=== PATIENT | female | born 1975 | race Caucasian/White ===

== ENCOUNTER 2016-08-14 10:29 | Day surgery (SDC) | payer OTHER ==
[2016-08-11 16:41] VITALS: BMI 31.3
[2016-08-14] VITALS (15 sets, daily range): BP systolic 100–140; BP diastolic 57–80; PULSE 66–107; RESP 13–24; Ht 152.4 cm; Wt 79.0 kg
[~2016-08-14] VITALS: Ht 152.4 cm; Wt 79.0 kg
[~2016-08-14 10:29] MED LIST: CEFAZOLIN 1 GM INJ ONE; CEFAZOLIN 2 GM/50 ML (PMX) 50 ML IVPB SCH; SOD CHLORIDE 0.9% 1,000 ML IV SCH
[2016-08-14 13:19] LABS: ADD SCAN DIFF NO
[2016-08-14 13:20] LABS: BASOPHILS % 0.4 % (0.0-2.0); EOSINOPHILS % 0.4 % (0.0-7.0); HEMATOCRIT 39.7 % (37.0-47.0); HEMOGLOBIN 12.9 g/dl (12.0-16.0); LYMPHOCYTES # 1.3 10^3/ul (0.8-2.9); LYMPHOCYTES % 15.5 % (15.0-51.0); MEAN CORPUSCULAR HGB CONC 32.5 g/dl (32.0-37.0); MEAN CORPUSCULAR VOLUME 83.1 fl (82.0-101.0); MEAN PLATELET VOLUME 9.7 fl (7.4-10.4); MONOCYTE # 0.5 10^3/ul (0.3-0.9); MONOCYTES % 5.7 % (0.0-11.0); NEUTROPHIL # 6.4 10^3/ul (1.6-7.5); NEUTROPHILS % 77.5 % (39.0-77.0); PLATELET COUNT 331 10^3/UL (140-415); RED BLOOD COUNT 4.78 10^6/ul (4.20-5.40); RED CELL DISTRIBUTION WIDTH 13.4 % (11.5-14.5); WHITE BLOOD COUNT 8.2 10^3/ul (4.8-10.8)
[2016-08-14 13:22] LABS: POTASSIUM 3.6 mmol/L (3.5-5.1)
[2016-08-14 13:24] LABS: INR 0.96; PROTIME 12.8 Sec (12.2-14.2)
[2016-08-14 13:25] LABS: PARTIAL THROMBOPLASTIN TIME 29.1 Sec (25.0-35.0)
[2016-08-14 13:31] LABS: CALCIUM 9.1 mg/dl (8.4-10.2); CREATININE 0.42 mg/dl (0.44-1.00)
[2016-08-14] MEDS ORDERED: BUPIVACAINE 0.25% (MPF) 10 ML 10 ML VIAL ONE ×2 (13:59→14:51)
[2016-08-14] MEDS ORDERED: LABETALOL HCL 20MG INJ IV PRN (14:00)
[2016-08-14] MEDS ORDERED: FENTAnyl 50 MCG/ML VIAL IV PRN ×2 (14:00)
[2016-08-14] MEDS ORDERED: MEPERIDINE 25 MG INJ IV PRN (14:00)
[2016-08-14] MEDS ORDERED: MIDAZOLAM 1 MG/ML 2 ML INJ IV PRN (14:00)
[2016-08-14] MEDS ORDERED: DIPHENHYDRAMINE 50 MG INJ IV PRN (14:00)
[2016-08-14] MEDS ORDERED: HYDROmorphONE (0.2 MG/ML) 10ML SYG IV PRN ×2 (14:00)
[2016-08-14] MEDS ORDERED: morphine (1 MG/ML) 10ML SYRINGE IV PRN ×2 (14:00)
[2016-08-14] MEDS ORDERED: EPHEDrine SULFATE 50 MG/5 ML SYG IV PRN (14:00)
[2016-08-14] MEDS ORDERED: ONDANSETRON 4 MG INJ IV PRN (14:00)
[2016-08-14] MEDS ORDERED: METOCLOPRAMIDE 10 MG INJ IV PRN (14:00)
[2016-08-14] MEDS ORDERED: hydrALAzine 20 MG INJ IV PRN (14:00)
[2016-08-14] MEDS ORDERED: SUCCINYLCHOLINE CHLORIDE 100 MG/5 ML SYG IV ONE (14:04)
[2016-08-14] MEDS ORDERED: LIDOCAINE 2% (SDV) 5 ML INJ ONE (14:04)
[2016-08-14] MEDS ORDERED: MEPERIDINE 100 MG INJ ONE (14:04)
[2016-08-14] MEDS ORDERED: PROPOFOL 20 ML ONE (14:04)
[2016-08-14] MEDS ORDERED: ROCURONIUM 50 MG INJ ONE (14:04)
[2016-08-14] MEDS ORDERED: GLYCOPYRROLATE 0.4 MG INJ ONE ×2 (14:04→14:24)
[2016-08-14] MEDS ORDERED: NEOSTIGMINE 3 MG/3 ML SYRINGE ONE (14:24)
[2016-08-14] MEDS ORDERED: METOCLOPRAMIDE 10 MG INJ ONE (14:37)
[2016-08-14] MEDS ORDERED: ONDANSETRON 4 MG INJ ONE (14:37)
[2016-08-14] MEDS ORDERED: HYDROCODONE/APAP (5/325) TAB PO ONE (15:00)
--- NOTE | 2016-08-14 16:30 | OPR ---
DATE OF OPERATION: 08/14/2016 INDICATION: This is a 41-year-old female with symptomatic gallstones. Risks, alternatives, benefits, and personnel were discussed with the patient. Patient expresses understanding and consents to the operation. PREOPERATIVE DIAGNOSIS: Symptomatic gallstones. PREOPERATIVE DIAGNOSIS: Symptomatic gallstones. OPERATION: Laparoscopic cholecystectomy. SURGEON: Jaye Valladares MD. SHANK STAPLER: Sampson Schulz SPECIMEN: Gallbladder. COMPLICATIONS: None. ANESTHESIA: General. PROCEDURE: The patient was taken to the OR and prepped and draped in the usual sterile fashion. Surgical timeout was performed. IV antibiotics were given. Infraumbilical incision was made transversely with a 15 blade. Dissection cautery was carried down to the fascia which was divided with curved Watt scissors. An 0 Vicryl U-stitch was placed into the fascia. Balloon Cammy trocar is introduced. Pneumoperitoneum is established. Midepigastric 12 mm optical trocar and right upper quadrant, right upper flank 5 mm optical trocars were placed under direct visualization. Upon initial inspection, there were some adhesions to the gallbladder which were taken down bluntly. The cystic duct was identified. The critical view was established. The cystic duct was divided using a [address] vascular stapler. The cystic artery is divided using clips and scissors. Gallbladder was taken off the gallbladder bed. There was good hemostasis. Additional Surgicel was placed for hemostatic support. Gallbladder was retrieved using EndoCatch bag. Ports were removed under direct visualization. 0 Vicryl U-stitch was tied down. Skin was closed using skin mich. Local anesthesia was injected. Dry dressings were applied. Dictated By: JAYE VALLADARES MD SB/SONU Conf#: [id number] DID#: [id number] MTDD
[2016-08-15] MEDS ORDERED: POLY17PO6 PO (17:35)
== END 2016-08-14 17:20 | disposition home or self-care (01) ==
LOC: SDS 10:29
PROVIDERS: ATTEND Surgery
DX: K81.1 Chronic cholecystitis (principal); I10 Essential (primary) hypertension; E66.9 Obesity, unspecified; Z68.34 Body mass index [BMI] 34.0-34.9, adult
CPT/HCPCS: 47562; 80048; 85025; 85610; 85730; 88304; J0330; J0690; J1170; J2175; J2270; J2405; J2710; J2765; J3010; Z7512; Z7610

== ENCOUNTER 2016-08-15 14:49 | Emergency (ER) | payer OTHER ==
[~2016-08-15] VITALS: Ht 157.5 cm; Wt 73.0 kg
[2016-08-15 14:56] VITALS: Ht 157.5 cm; Wt 73.0 kg
--- NOTE | 2016-08-15 15:18 | ERA ---
ER Documentation Chief Complaint Date/Time DATE: 08/15/16 TIME: 15:18 Chief Complaint HAD LAP SAGAR YETERDAY ,HERE FOR AP,FEVER, VOMITING HPI The patient is a 41-year-old female, presenting to the ER because of subjective fever, vomiting, constipation after having had laparoscopic cholecystectomy yesterday by Dr. Valladares. She denies headache, neck pain, chest pain, dyspnea, vomiting, dysuria. She does not smoke, drink Past medical history:none Past surgical history: Cholecystectomy ROS All systems reviewed and are negative except as per history of present illness. Medications Home Meds Active Scripts Polyethylene Glycol* (Miralax*) 17 Gm Powd.pack, 17 GM PO DAILY, #7 Prov:DERIC LOWE MD 08/15/16 Reported Medications [None] No Conflict Check 04/17/12 Allergies Allergies: Coded Allergies: No Known Allergy (Unverified , 08/15/16) PMhx/Soc History of Surgery: Yes (lap sagar) Anesthesia Reaction: No Hx Neurological Disorder: No Hx Respiratory Disorders: No Hx Cardiac Disorders: No Hx Psychiatric Problems: No Hx Miscellaneous Medical Probl: No Hx Alcohol Use: No Hx Substance Use: No Hx Tobacco Use: No Physical Exam Vitals Vital Signs Date Time Temp Pulse Resp B/P Pulse Ox O2 Delivery O2 Flow Rate FiO2 08/15/16 14:56 99.6 99 20 130/91 97 Physical Exam Const: No acute distress. Head: Atraumatic. Eyes: Normal Conjunctiva. ENT: Normal External Ears, Nose and Mouth. Neck: Full range of motion. No meningismus. Resp: Clear to auscultation bilaterally. Cardio: Regular rate and rhythm, no murmurs. Abd: Soft, non distended, normal bowel sounds, puncture wound healing well, mild diffuse and vague abdominal tenderness, no rigidity, rebound, CVA tenderness Skin: No petechiae or rashes. Back: No midline or flank tenderness. Ext: No cyanosis, or edema. Neur: Awake and alert. No focal deficit Psych: Normal Mood and Affect. Result Diagram: 08/15/16 1630 08/15/16 1630 Results 24 hrs Laboratory Tests Test 08/15/16 16:28 08/15/16 16:30 Bedside Urine pH (LAB) 7.0 Bedside Urine Protein (LAB) 1+ Bedside Urine Glucose (UA) Negative Bedside Urine Ketones (LAB) 1+ Bedside Urine Blood 1+ Bedside Urine Nitrite (LAB) Negative Bedside Urine Leukocyte Esterase (L Negative White Blood Count 16.110^3/ul Red Blood Count 4.4210^6/ul Hemoglobin 12.2g/dl Hematocrit 36.8% Mean Corpuscular Volume 83.3fl Mean Corpuscular Hemoglobin 27.6pg Mean Corpuscular Hemoglobin Concent 33.2g/dl Red Cell Distribution Width 13.8% Platelet Count 82138^3/UL Mean Platelet Volume 9.5fl Neutrophils % 88.7% Lymphocytes % 5.3% Monocytes % 5.3% Eosinophils % 0.0% Basophils % 0.1% Nucleated Red Blood Cells % 0.0/100WBC Neutrophils # 14.310^3/ul Lymphocytes # 0.910^3/ul Monocytes # 0.910^3/ul Eosinophils # 0.010^3/ul Basophils # 0.010^3/ul Nucleated Red Blood Cells # 0.010^3/ul Sodium Level 139mmol/L Potassium Level 3.6mmol/L Chloride Level 101mmol/L Carbon Dioxide Level 24mmol/L Anion Gap 18 Blood Urea Nitrogen 8mg/dl Creatinine 0.46mg/dl Glucose Level 158mg/dl Calcium Level 9.1mg/dl Total Bilirubin 0.9mg/dl Direct Bilirubin 0.00mg/dl Indirect Bilirubin 0.9mg/dl Aspartate Amino Transf (AST/SGOT) 158IU/L Alanine Aminotransferase (ALT/SGPT) 197IU/L Alkaline Phosphatase 121IU/L Total Protein 8.4g/dl Albumin 4.4g/dl Globulin 4.00g/dl Albumin/Globulin Ratio 1.10 Lipase 51U/L Current Medications Medications (Trade) Dose Ordered Sig/Tono Route PRN Reason Start Time Stop Time Status Last Admin Dose Admin Sodium Chloride (NS) 1,000 ml @ 1,000 mls/hr Q1H ONCE IV 08/15/16 16:00 08/15/16 16:59 DC 08/15/16 16:19 Morphine Sulfate (morphine) 4 mg ONCE STAT IV 08/15/16 15:31 08/15/16 15:33 DC 08/15/16 16:20 Ondansetron HCl (Zofran Inj) 4 mg ONCE STAT IV 08/15/16 15:31 08/15/16 15:33 DC 08/15/16 16:19 Ketorolac Tromethamine (Toradol) 30 mg ONCE STAT IV 08/15/16 17:34 08/15/16 17:35 DC 08/15/16 17:40 IV Flush 10 ml 10 ml STK-MED ONCE .ROUTE 08/15/16 17:55 08/15/16 17:56 DC 08/15/16 18:24 Sodium Chloride (NS) 100 ml @ ud STK-MED ONCE .ROUTE 08/15/16 17:56 08/15/16 17:57 DC 08/15/16 18:24 Iohexol (Omnipaque 300mg/ ml) 150 ml STK-MED ONCE .ROUTE 08/15/16 17:56 08/15/16 17:57 DC 08/15/16 18:23 Procedures/[place] [id number] Radiology Main Line: [phone] DIAGNOSTIC IMAGING REPORT Patient: ROLF ROSE : 1975 Age: 41 Sex: F MR #: [id number] DOS: 08/15/16 1531 Ordering MD: DERIC LOWE MD Location: [facility] Room/Bed: PROCEDURE: XR Chest. CLINICAL INDICATION: Abdominal pain. TECHNIQUE: Single frontal chest x-ray. COMPARISON: 04/18/2012 FINDINGS: Minimal left lower lobe subsegmental atelectasis is present. Otherwise, the lungs are clear. No focal opacification is seen. No pneumothorax or pleural effusion is seen. Aortic arch atherosclerotic calcifications are present. Otherwise, the cardiomediastinal silhouette is unremarkable. The osseous structures are grossly unremarkable. IMPRESSION: 1. Left lower lobe linear density likely representing subsegmental atelectasis. Otherwise, unremarkable exam. 2. Aortic atherosclerosis. RPTAT: JJ .Angel Whitney MD, Date Time Electronically viewed and signed by .Angel Whitney MD, on 08/15/2016 16:29 .A/ CC: DERIC LOWE MD [place] [id number] Radiology Main Line: [phone] DIAGNOSTIC IMAGING REPORT Patient: ROLF ORSE : 1975 Age: 41 Sex: F MR #: [id number] DOS: 08/15/16 1747 Ordering MD: DERIC LOWE MD Location: [facility] Room/Bed: PROCEDURE: CT Abdomen and Pelvis with contrast. CLINICAL INDICATION: Abdominal pain, recent laparoscopic cholecystectomy TECHNIQUE: CT of the abdomen and pelvis was performed on a multi-detector scanner following the uncomplicated IV administration of 100 cc of Omnipaque 300. Coronal and sagittal images were reformatted from the axial data set. One or more of the following dose reduction techniques were used: automated exposure control, adjustment of the mA and/or kV according to patient size, use of iterative reconstruction technique. CTDI = 14.44 mGy. DLP = 869.75 mGy- cm. COMPARISON: None. FINDINGS: CT abdomen: Bibasilar atelectasis is noted. The heart size is normal, without pericardial effusion. The liver is fatty infiltrated, without evidence of focal mass. Gallbladder is surgically absent. Mild amount of fluid is present in the gallbladder fossa, likely normal postoperative change. Biliary tree, pancreas, spleen, adrenal glands and kidneys are unremarkable. No urolithiasis or obstructive uropathy is identified. The stomach is grossly unremarkable. There is no abdominal aortic aneurysm or dissection. There is no retroperitoneal lymphadenopathy. The blanca hepatis region is clear. CT pelvis: Trace amount of free intraperitoneal air is seen, consistent with residual postoperative air. No bowel obstruction, abscess, or evidence of bowel perforation is seen. There is no diverticulosis, diverticulitis or colitis. The appendix is well visualized and normal. Urinary bladder is grossly unremarkable. Uterus is surgically absent. No pelvic mass, free fluid or lymphadenopathy is identified. The surrounding osseous structures are unremarkable. No osteolytic or osteoblastic lesion is detected. IMPRESSION: 1. The patient is status post recent cholecystectomy, with unremarkable postoperative appearance of the gallbladder fossa. No evidence of abscess, hematoma, or bowel perforation is identified. 2. Hepatic steatosis is noted. 3. There is bibasilar atelectasis. 4. No mass or lymphadenopathy is identified. RPTAT: VV .Delano Liang MD, Date Time Electronically viewed and signed by .Delano Liang MD, MD on 08/15/2016 18: 31 .R/ CC: DERIC LOWE MD MEDICAL MAKING DECISION: The patient is a 41-year-old female, presenting with postoperative abdominal pain. She was treated with 1 L normal saline for clinical dehydration, Zofran 4 mg IV for nausea, morphine 4 mg IV and Toradol 30 g IV for pain with good response. The differential diagnoses considered include but are not limited to cholelithiasis, cholecystitis, cystitis, pancreatitis, hepatitis, gastritis, peptic ulcer disease, gastric ulcer, appendicitis, diverticulitis, cholangitis, choledocholithiasis, partial small bowel obstruction. Consultation: He was evaluated by her surgeon Dr. Valladares who evaluated in the ER who agreed to discharge the patient is a CT scan is unremarkable Departure Diagnosis: Primary Impression: Postoperative abdominal pain Condition: Good Comments She was discharged with MiraLAX I discussed the findings with the patient. I advised the patient to follow-up with general surgeon in the morning, and return if any concern. DERIC LOWE MD Aug 15, 2016 15:18
[2016-08-15] MEDS ORDERED: ONDANSETRON 4 MG INJ IV STA (15:31)
[2016-08-15] MEDS ORDERED: morphine 4 MG/ML VIAL IV STA (15:31)
[2016-08-15] MEDS ORDERED: SOD CHLORIDE 0.9% 1,000 ML IV ONE (16:00)
[2016-08-15 16:29] LABS: URINE BLOOD (Dip) POC 1+ (NEGATIVE)
--- NOTE | 2016-08-15 16:30 | RADRPT ---
PROCEDURE: XR Chest. CLINICAL INDICATION: Abdominal pain. TECHNIQUE: Single frontal chest x-ray. COMPARISON: 04/18/2012 FINDINGS: Minimal left lower lobe subsegmental atelectasis is present. Otherwise, the lungs are clear. No fo alfredo opacification is seen. No pneumothorax or pleural effusion is seen. Aortic arch atheroscleroti c calcifications are present. Otherwise, the cardiomediastinal silhouette is unremarkable. The oss eous structures are grossly unremarkable. IMPRESSION: 1. Left lower lobe linear density likely representing subsegmental atelectasis. Otherwise, unremar kable exam. 2. Aortic atherosclerosis. RPTAT: JJ .Angel Whitney MD, MD Date Time Electronically viewed and signed by .Angel Whitney MD, on 08/15/2016 16:29 .A/
[2016-08-15 16:45] LABS: ADD SCAN DIFF NO
[2016-08-15 16:48] LABS: BASOPHILS % 0.1 % (0.0-2.0); HEMATOCRIT 36.8 % (37.0-47.0); HEMOGLOBIN 12.2 g/dl (12.0-16.0); LYMPHOCYTES # 0.9 10^3/ul (0.8-2.9); LYMPHOCYTES % 5.3 % (15.0-51.0); MEAN CORPUSCULAR HEMOGLOBIN 27.6 pg (29.0-33.0); MEAN CORPUSCULAR HGB CONC 33.2 g/dl (32.0-37.0); MEAN CORPUSCULAR VOLUME 83.3 fl (82.0-101.0); MEAN PLATELET VOLUME 9.5 fl (7.4-10.4); MONOCYTE # 0.9 10^3/ul (0.3-0.9); MONOCYTES % 5.3 % (0.0-11.0); NEUTROPHIL # 14.3 10^3/ul (1.6-7.5); NEUTROPHILS % 88.7 % (39.0-77.0); PLATELET COUNT 325 10^3/UL (140-415); RED BLOOD COUNT 4.42 10^6/ul (4.20-5.40); RED CELL DISTRIBUTION WIDTH 13.8 % (11.5-14.5); WHITE BLOOD COUNT 16.1 10^3/ul (4.8-10.8)
[2016-08-15 17:01] LABS: ALBUMIN 4.4 g/dl (3.3-4.9); POTASSIUM 3.6 mmol/L (3.5-5.1)
[2016-08-15 17:03] LABS: BILIRUBIN,INDIRECT 0.9 mg/dl (0-1.1); BILIRUBIN,TOTAL 0.9 mg/dl (0.2-1.3); CREATININE 0.46 mg/dl (0.44-1.00)
[2016-08-15 17:04] LABS: ALBUMIN/GLOBULIN RATIO 1.1; CALCIUM 9.1 mg/dl (8.4-10.2); TOTAL PROTEIN 8.4 g/dl (6.1-8.1)
[2016-08-15] MEDS ORDERED: KETOROLAC 30 MG INJ IV STA (17:34)
[2016-08-15] MEDS ORDERED: POLY17PO6 PO (17:35)
[2016-08-15] MEDS ORDERED: SOD CHLORIDE 0.9% 100 ML ONE (17:56)
[2016-08-15] MEDS ORDERED: IOHEXOL 300MG/ML 150 ML BTL ONE (17:56)
--- NOTE | 2016-08-15 18:32 | RADRPT ---
PROCEDURE: CT Abdomen and Pelvis with contrast. CLINICAL INDICATION: Abdominal pain, recent laparoscopic cholecystectomy TECHNIQUE: CT of the abdomen and pelvis was performed on a multi-detector scanner following the un complicated IV administration of 100 cc of Omnipaque 300. Coronal and sagittal images were reformat roe from the axial data set. One or more of the following dose reduction techniques were used: auto mated exposure control, adjustment of the mA and/or kV according to patient size, use of iterative reconstruction technique. CTDI = 14.44 mGy. DLP = 869.75 mGy-cm. COMPARISON: None. FINDINGS: CT abdomen: Bibasilar atelectasis is noted. The heart size is normal, without pericardial effusion. The liver is fatty infiltrated, without evidence of focal mass. Gallbladder is surgically absent. Mild amoun t of fluid is present in the gallbladder fossa, likely normal postoperative change. Biliary tree, p ancreas, spleen, adrenal glands and kidneys are unremarkable. No urolithiasis or obstructive uropat hy is identified. The stomach is grossly unremarkable. There is no abdominal aortic aneurysm or dissection. There is no retroperitoneal lymphadenopathy. The blanca hepatis region is clear. CT pelvis: Trace amount of free intraperitoneal air is seen, consistent with residual postoperative air. No hellen wel obstruction, abscess, or evidence of bowel perforation is seen. There is no diverticulosis, div erticulitis or colitis. The appendix is well visualized and normal. Urinary bladder is grossly unr emarkable. Uterus is surgically absent. No pelvic mass, free fluid or lymphadenopathy is identifie d. The surrounding osseous structures are unremarkable. No osteolytic or osteoblastic lesion is detect ed. IMPRESSION: 1. The patient is status post recent cholecystectomy, with unremarkable postoperative appearance of the gallbladder fossa. No evidence of abscess, hematoma, or bowel perforation is identified. 2. Hepatic steatosis is noted. 3. There is bibasilar atelectasis. 4. No mass or lymphadenopathy is identified. RPTAT: VV .Delano Liang MD, MD Date Time Electronically viewed and signed by .Delano Liang MD, MD on 08/15/2016 18:31 .R/
== END 2016-08-15 19:38 | disposition home or self-care (01) ==
LOC: FTE 14:49 → E/R 19:38
DX: G89.18 Other acute postprocedural pain (principal); I10 Essential (primary) hypertension; R10.9 Unspecified abdominal pain
CPT/HCPCS: 36415; 71010; 74177; 80053; 81003; 83690; 85025; 96361; 96374; 96375; J1885; J2270; J2405; J7030; Q9967; Z7502; Z7610

== ENCOUNTER 2016-08-17 18:40 | Emergency (ER) | payer OTHER ==
[~2016-08-17] VITALS: Ht 152.4 cm; Wt 73.0 kg
[~2016-08-17 18:40] MED LIST changes: -CEFAZOLIN 1 GM INJ ONE; -CEFAZOLIN 2 GM/50 ML (PMX) 50 ML IVPB SCH; +POLY17PO6 PO; -SOD CHLORIDE 0.9% 1,000 ML IV SCH
[2016-08-17 18:48] VITALS: Ht 152.4 cm; Wt 73.0 kg
[2016-08-17] MEDS ORDERED: ONDANSETRON 4 MG INJ IV STA (20:37)
[2016-08-17] MEDS ORDERED: KETOROLAC 30 MG INJ IV STA (20:37)
--- NOTE | 2016-08-17 20:37 | ERD ---
ER Documentation Chief Complaint Date/Time DATE: 08/17/16 TIME: 20:32 Chief Complaint Right flank pain since 1729. Constipation since Sunday HPI 41-year-old female presented emergency room for right flank pain that started today at around 1729. She stated that she had constipation since Sunday. Stated right flank pain was described as sharp. Stated that her last bowel movement was Sunday and it was hard. She denies trauma. She also reports difficulty walking due to her right flank pain, and abdominal pain. Denies headache, loss of consciousness, dizziness, blurry vision, changes in vision, photophobia, facial pain, ear pain, throat pain, difficulty swallowing, neck pain, shoulder pain, chest pain, cough, hemoptysis, loss of appetite, nausea, vomiting, hematochezia, diarrhea, urinary symptoms, hematuria, , the possibility of being , bladder and bowel incontinences, extremity weakness, extremity tenderness, numbness or tingling sensation, difficulty walking, recent travel, recent exposure to illness, recent antibiotic use in the last 3 months, fever, chills. Allergy: No known drug allergies. PMH: Denies. Family medical history: Denies. AO LMP: "5 years ago." Medications: Denies. Surgery: Hysterectomy. Primary Social History: Denies smoking, use of alcohol, use of illegal drugs. ROS All systems reviewed and are negative except as per history of present illness. Medications Home Meds Active Scripts Polyethylene Glycol* (Miralax*) 17 Gm Powd.pack, 17 GM PO DAILY, #7 Prov:GREGORY LOWE MD 08/15/16 Reported Medications [None] No Conflict Check 04/17/12 Allergies Allergies: Coded Allergies: No Known Allergy (Unverified , 08/15/16) PMhx/Soc History of Surgery: Yes (rupal thornton) Anesthesia Reaction: No Hx Neurological Disorder: No Hx Respiratory Disorders: No Hx Cardiac Disorders: No Hx Psychiatric Problems: No Hx Miscellaneous Medical Probl: No Hx Alcohol Use: No Hx Substance Use: No Hx Tobacco Use: No Smoking Status: Never smoker Physical Exam Vitals Vital Signs Date Time Temp Pulse Resp B/P Pulse Ox O2 Delivery O2 Flow Rate FiO2 08/17/16 18:48 99.6 110 20 141/76 96 Physical Exam CONSTITUTIONAL: Well-appearing; well-nourished; in no apparent distress. HEAD: Normocephalic; atraumatic. EYES: Conjunctiva clear, sclera non-icteric, EOM intact. PERRL Ears: Hearing intact. EACs clear, TMs non-bulging, non-inflamed, translucent & mobile, ossicles normal appearance, No obstructions, no erythema, no discharges Nose: No obstructions. No polyps. No external lesions. Mucosa non-inflamed. No external lesions, septum and turbinates normal. No rhinorrhea. No discharges. Frontal sinus is non-tender to palpation. Maxillary sinus is non-tender to palpation. MOUTH: Moist mucous membranes, no lesion, no obstructions, no vesicles, no thrush, patent airway Throat: Uvula in midline. Right tonsil is +1 with no erythema, no exudate. Left tonsil is +1 with no erythema, no exudate. Tolerating secretions well. Good gag reflex. Patent airway. Neck: Supple, without lesions, bruits, or adenopathy. No mass. Thyroid non- enlarged and non-tender to palpation. CHEST: Symmetrical chest. Respirations even and not labored. No retractions noted. CARDIOVASCULAR: Normal S1, S2. RRR. No murmurs, gallops. RESPIRATORY: Normal chest excursion with respiration; breath sounds clear and equal bilaterally; no wheezes, rhonchi, or rales. Breathing even and unlabored. Speaking in clear, full, and complete sentences w/ ease. ABDOMEN: Normal bowel sounds normal. Soft, round, non-distended, non-guarding, no rebound, no organomegaly, no masses, no pulsating abdominal mass. No hernia. Has diffuse abdominal tenderness on palpation. No peritoneal signs. : No CVA tenderness. BACK: Symmetrical shoulder. Spine is midline without deformity, tenderness. No evidence of trauma or deformity. PELVIS: Stable pelvis. No evidence of trauma or deformity. MUSCULOSKELETAL: Normal gait and station. No misalignment, asymmetry, crepitation, defects, tenderness, masses, effusions, decreased range of motion, instability, atrophy or abnormal strength or tone in the head, neck, spine, ribs , pelvis or extremities. No calf tenderness. NEUROVASCULAR: Distal pulses are present. Pedal pulse are present, equal, and normal. Capillary refills are < 2 seconds. NEUROLOGIC: Alert and oriented x4. Speaks full and clear sentences. Cranial Nerves II-XII normal. Sensation to pain, touch, and proprioception normal. Grossly unremarkable. No neurologic deficits. Romberg test is negative. PSYCHOLOGICAL: The patients mood and manner are appropriate. No hallucinations , delusions. Not SI. Not HI. Has the capacity to decide for self SKIN: Normal for age and ethnicity; warm; dry; good turgor; no apparent lesions or exudates. No rashes, hives, discoloration. Intact. Result Diagram: 08/17/16210908/17/162109 Results 24 hrs Laboratory Tests Test 08/17/16 21:05 08/17/16 21:10 Urine Color LT. YELLOW Urine Clarity CLEAR Urine pH 8.5 Urine Specific Noble 1.010 Urine Ketones NEGATIVE Urine Nitrite NEGATIVE Urine Bilirubin NEGATIVE Urine Urobilinogen 4.0 E.U./dL Urine Leukocyte Esterase NEGATIVE Urine Microscopic RBC 0-2/HPF Urine Microscopic WBC NONE SEEN/HPF Urine Squamous Epithelial Cells RARE Urine Bacteria RARE Urine Hemoglobin TRACE Urine Glucose NEGATIVE% Urine Total Protein TRACE Urine Test NEGATIVE White Blood Count 15.110^3/ul Red Blood Count 4.0310^6/ul Hemoglobin 11.2g/dl Hematocrit 33.3% Mean Corpuscular Volume 82.6fl Mean Corpuscular Hemoglobin 27.8pg Mean Corpuscular Hemoglobin Concent 33.6g/dl Red Cell Distribution Width 13.6% Platelet Count 51668^3/UL Mean Platelet Volume 9.2fl Neutrophils % 89.1% Lymphocytes % 5.8% Monocytes % 4.3% Eosinophils % 0.1% Basophils % 0.2% Nucleated Red Blood Cells % 0.0/100WBC Neutrophils # 13.410^3/ul Lymphocytes # 0.910^3/ul Monocytes # 0.710^3/ul Eosinophils # 0.010^3/ul Basophils # 0.010^3/ul Nucleated Red Blood Cells # 0.010^3/ul Sodium Level 139mmol/L Potassium Level 3.5mmol/L Chloride Level 100mmol/L Carbon Dioxide Level 25mmol/L Anion Gap 18 Blood Urea Nitrogen 8mg/dl Creatinine 0.55mg/dl Glucose Level 140mg/dl Calcium Level 8.9mg/dl Total Bilirubin 0.8mg/dl Direct Bilirubin 0.00mg/dl Indirect Bilirubin 0.8mg/dl Aspartate Amino Transf (AST/SGOT) 62IU/L Alanine Aminotransferase (ALT/SGPT) 126IU/L Alkaline Phosphatase 127IU/L Total Protein 7.9g/dl Albumin 4.0g/dl Globulin 3.90g/dl Albumin/Globulin Ratio 1.02 Amylase Level 87U/L Lipase 122U/L Current Medications Medications (Trade) Dose Ordered Sig/Tono Route PRN Reason Start Time Stop Time Status Last Admin Dose Admin Ketorolac Tromethamine (Toradol) 30 mg ONCE STAT IV 08/17/16 20:37 08/17/16 20:42 DC 08/17/16 21:01 Ondansetron HCl (Zofran Inj) 4 mg ONCE STAT IV 08/17/16 20:37 08/17/16 20:42 DC 08/17/16 21:01 Procedures/MDM Examination: Please see physical examination. Disease process, medical treatment was explained to the patient and family member. They verbalized understanding and agreed with the diagnostic tests, medical treatment, and follow-up care. Radiology: CT of the abdomen and pelvis Impression: Persistent bibasilar subsegmental atelectasis. Diffuse fatty infiltration of the liver. Status post cholecystectomy with a contained focus of increased density within the gallbladder fossa which has not changed in volume however there appears to be interval increase in peripheral gas. This most likely represents surgicel from the patient's recent surgery. Clinical correlation is necessary. Other possibilities include a liquefying hematoma or a small contained biloma. Trace fluid right pericolic gutter and pelvis. Mild retained stool without obstruction. Status post hysterectomy. Blood works: Reviewed. POC urine : Urinalysis: Reviewed. Treatment: IV insertion. Toradol. Zofran. Re-evaluation: Patient is alert oriented 4. Denies headache, dizziness, blurry vision, neck pain, chest pain, shoulder pain, back pain, abdominal pain. No nausea and vomiting. No right upper abdominal tenderness on palpation. No right lower abdominal tenderness and palpation. No nausea and vomiting. No episode of emesis here to emergency room. Consultation: None. Differential diagnosis: Appendicitis versus nephrolithiasis versus abdominal pain versus constipation Medical decision m[age]-year-old female presented emergency room for right flank pain that started today at around 1730. She stated that she had constipation since Sunday. Stated right flank pain was described as sharp. Stated that her last bowel movement was Sunday and it was hard. She denies trauma. She also reports difficulty walking due to her right flank pain, and abdominal pain. Patient's complaint, patient's history about her complaint, my physical findings, diagnostic test results, my reevaluation are consistent with final diagnosis of constipation, abdominal pain. Case was discussed with supervising emergency room physician Dr. Gregory Lowe who agreed in my medical decision making. Medications prescribed are the following: Mag citrate. Dulcolax. Zofran. Patient and family member are made aware of the side effects and adverse reactions of the medications prescribed. Instructed on when to seek emergent and medical attention in case allergic/anaphylactic reactions or severe side effects and or adverse reactions to medications. Patient and family member verbalized understanding. Patient instructed Instructed to follow-up with his PCP in 24-48 hours. Patient stated that she will follow-up with her primary care provider in the next 24-48 hours. Instructed to Call 911 for chest pain, shortness of breath. Advised to come back here in ED as soon as possible for severity of symptoms which includes but not limited to: any new symptoms; shortness of breath/difficulty of breathing; cardiovascular changes; severe gastrointestinal symptoms; signs and symptoms of bleeding and or infection; signs of compartment syndrome/neurovascular changes; neurological changes/deficits. Patient and family member verbalized understanding. Upon discharge, patient is alert and oriented x 4, speaks full and clear sentences, denies pain, has no neurological deficits, has no neurovascular deficits, difficulty of breathing. Breathing even and unlabored. Lung sounds are clear to auscultation. Not in distress. Appears comfortable. Ambulatory with steady gait. Appears satisfied with care provided here in ED. Departure Diagnosis: Primary Impression: Abdominal pain Additional Impression: Constipation Condition: Stable Additional Instructions: Patient instructed Instructed to follow-up with his PCP in 24-48 hours. Patient stated that she will follow-up with her primary care provider in the next 24-48 hours. Instructed to Call 911 for chest pain, shortness of breath. Advised to come back here in ED as soon as possible for severity of symptoms which includes but not limited to: any new symptoms; shortness of breath/difficulty of breathing; cardiovascular changes; severe gastrointestinal symptoms; signs and symptoms of bleeding and or infection; signs of compartment syndrome/neurovascular changes; neurological changes/deficits. Patient and family member verbalized understanding. GISSELL MONTOYA Aug 17, 2016 20:37
[2016-08-17 21:12] LABS: ADD UMIC YES; URINE BILIRUBIN (Dip) NEGATIVE (NEGATIVE); URINE BLOOD (Dip) TRACE (NEGATIVE); URINE COLOR LT. YELLOW (YELLOW); URINE GLUCOSE (Dip) NEGATIVE (NEGATIVE); URINE KETONES (Dip) NEGATIVE (NEGATIVE); URINE LEUKOCYTE ESTERASE (Dip) NEGATIVE (NEGATIVE); URINE NITRITE (Dip) NEGATIVE (NEGATIVE); URINE TOTAL PROTEIN (Dip) TRACE (NEGATIVE); URINE UROBILINOGEN (Dip) 4.0 E.U./dL (0.1-1.0)
[2016-08-17 21:14] LABS: ADD SCAN DIFF NO
[2016-08-17 21:16] LABS: BASOPHILS % 0.2 % (0.0-2.0); EOSINOPHILS % 0.1 % (0.0-7.0); HEMATOCRIT 33.3 % (37.0-47.0); HEMOGLOBIN 11.2 g/dl (12.0-16.0); LYMPHOCYTES # 0.9 10^3/ul (0.8-2.9); LYMPHOCYTES % 5.8 % (15.0-51.0); MEAN CORPUSCULAR HEMOGLOBIN 27.8 pg (29.0-33.0); MEAN CORPUSCULAR HGB CONC 33.6 g/dl (32.0-37.0); MEAN CORPUSCULAR VOLUME 82.6 fl (82.0-101.0); MEAN PLATELET VOLUME 9.2 fl (7.4-10.4); MONOCYTE # 0.7 10^3/ul (0.3-0.9); MONOCYTES % 4.3 % (0.0-11.0); NEUTROPHIL # 13.4 10^3/ul (1.6-7.5); NEUTROPHILS % 89.1 % (39.0-77.0); PLATELET COUNT 311 10^3/UL (140-415); RED BLOOD COUNT 4.03 10^6/ul (4.20-5.40); RED CELL DISTRIBUTION WIDTH 13.6 % (11.5-14.5); WHITE BLOOD COUNT 15.1 10^3/ul (4.8-10.8)
[2016-08-17 21:17] LABS: URINE RBCS 0-2 /HPF (0)
[2016-08-17 21:18] LABS: BACTERIA,URINE RARE; SQUAMOUS EPITHELIAL CELL,UR RARE
[2016-08-17 21:29] LABS: POTASSIUM 3.5 mmol/L (3.5-5.1)
[2016-08-17 21:31] LABS: CREATININE 0.55 mg/dl (0.44-1.00)
[2016-08-17 21:32] LABS: ALBUMIN/GLOBULIN RATIO 1.02; BILIRUBIN,INDIRECT 0.8 mg/dl (0-1.1); BILIRUBIN,TOTAL 0.8 mg/dl (0.2-1.3); CALCIUM 8.9 mg/dl (8.4-10.2); TOTAL PROTEIN 7.9 g/dl (6.1-8.1)
--- NOTE | 2016-08-17 22:49 | RADRPT ---
PROCEDURE: CT ABDOMEN/PELVIS WITHOUT CONTRAST CLINICAL INDICATION: 41-year-old female with diffuse abdominal pain, fever and vomiting. The patie nt is status post cholecystectomy August 14, 2016. TECHNIQUE: The study was performed utilizing a [employer] VCT 64-slice CT scanner. Direct axia l sections were obtained through the abdomen and pelvis without the use of intravenous contrast mate rial. Sagittal and coronal reformations were obtained. One or more of the following dose reduction t echniques were utilized: automated exposure control, adjustment of the mA and/or kV according to pat ient's size or use of iterative reconstruction technique. [facility]/vol = 15.7 mGy; Total Exam DLP = 871.6 mGy-cm. COMPARISON: CT abdomen/pelvis August 15, 2016. FINDINGS: There is bibasilar subsegmental atelectasis without significant interval change. There is no evidenc e for significant pleural effusion. The liver has a normal size and contour. There is diffuse decr eased density throughout the liver consistent with fatty infiltration without focal areas of abnorma l density. No intrahepatic nor extrahepatic biliary ductal dilatation is seen. There is mild infiltr ation of the ventral upper mid and right abdominal wall and umbilical region with subcutaneous gas a nd skin clips from the patient's recent laparoscopic surgery. There is a small umbilical hernia pres ent with an opening of 7 x 7 mm. Surgical clips are seen within the gallbladder fossa from recent ch olecystectomy there is again identified a focus of increased density within the gallbladder fossa re gion measuring 2.8 x 3.3 x 3.8 cm. This has a peripheral gas which appears to have increased in the interval. There is trace fluid identified within the right gutter and pelvis. The pancreas is without areas of abnormal attenuation. The spleen is identified and has a normal size without abnor mal density. The adrenal glands are unremarkable. The kidneys are without abnormal density. No hydro ureteronephrosis nor nephroureterolithiasis is evident. The urinary bladder contains urine. There is mild retained stool within the colon without obstruction. The appendix is visualized and is withou t abnormal thickening or surrounding inflammatory reaction. The uterus is not visualized consistent with prior hysterectomy. The aortoiliac vessels are without aneurysmal dilatation. The osseous stru ctures are intact. IMPRESSION: 1. Persistent bibasilar subsegmental atelectasis. 2. Diffuse fatty infiltration of the liver. 3. Status post cholecystectomy with a contained focus of increased density within the gallbladder f mukesh which has not changed in volume however there appears to be interval increase in peripheral gas . This most likely represents Surgicel from the patient's recent surgery. Clinical correlation is necessary. Other possibilities include a liquefying hematoma or a small contained biloma. 4. Trace fluid right pericolic gutter and pelvis. 5. Mild retained stool without obstruction. 6. Status post hysterectomy. .Eric Alonso MD, Date Time Electronically viewed and signed by .Eric Aolnso MD, MD on 08/17/2016 22:48 .Ashlie/
[2016-08-17] MEDS ORDERED: MAGN296S40 PO (23:33)
[2016-08-17] MEDS ORDERED: ONDA4TAB14 PO (23:35)
[2016-08-17] MEDS ORDERED: BISA-57 PO (23:35)
== END 2016-08-18 00:14 | disposition home or self-care (01) ==
LOC: FTE 18:40
DX: R10.84 Generalized abdominal pain (principal); K59.00 Constipation, unspecified
CPT/HCPCS: 74176; 80053; 81001; 81003; 82150; 83690; 84703; 85025; 87086; J1885; J2405; 96374; 96375

== ENCOUNTER 2018-07-03 08:07 | Day surgery (SDC) | payer OTHER ==
[~2018-07-03] VITALS: Ht 147.3 cm; Wt 77.8 kg
[~2018-07-03 08:07] MED LIST changes: +BISA-57 PO; +MAGN296S40 PO; +ONDA4TAB14 PO
[2018-07-03 08:39] VITALS: Ht 147.3 cm; Wt 77.8 kg
[2018-07-03] MEDS ORDERED: NO ACTIVE MEDS (08:44)
[2018-07-03 09:16] VITALS: BP 136/65; PULSE 70; RESP 18
[2018-07-03] MEDS ORDERED: MIDAZOLAM 1 MG/ML 2 ML INJ ONE ×3 (10:29)
[2018-07-03] MEDS ORDERED: FENTAnyl 50 MCG/ML VIAL ONE (10:29)
[2018-07-03 10:40] VITALS: BP 138/67; RESP 15
== END 2018-07-03 11:42 | disposition home or self-care (01) ==
LOC: GIL 08:07
PROVIDERS: ATTEND Internal Medicine Gastroenterology
DX: R19.4 Change in bowel habit (principal); K29.30 Chronic superficial gastritis without bleeding; D12.5 Benign neoplasm of sigmoid colon; K64.8 Other hemorrhoids
CPT/HCPCS: 43239; 45385; 88305; 88312; J2250; J3010; Z7610